=== PATIENT | female | born 1985 | race Caucasian/White ===

== ENCOUNTER 2018-05-07 23:01 | Inpatient (IN) | payer OTHER ==
[2018-05-08 00:31] LABS: Appearance,Urine Clear (Clear); Bilirubin,Urine 1+ (Negative); Blood,Urine Negative (Negative); Color,Urine Dark Yellow; Glucose,Urine (UA) Negative (Negative); Ketones,Urine 3+ (Negative); Leukocyte Esterase,Urine Negative (Negative); Mucus,Urine Moderate /hpf; Nitrite,Urine Negative (Negative); PH, Urine 8.5 (5.0-8.0); Protein,Urine 3+ (Negative); RBC,Urine 4 /hpf (0-5); Specific Gravity,Urine 1.029 (1.001-1.035); Squamous Epithelial Cell,Urine 2 /hpf (0-4); Urobilinogen,Urine >12.0 mg/dL (<2.0); WBC,Urine 2 /hpf (0-5)
[2018-05-08 00:32] LABS: HCT 40.2 % (34.0-46.0); MCH 28.9 pg (25.0-35.0); MCHC 34.7 g/dL (31.0-37.0); MCV 83.3 fL (80.0-100.0); Mean Platelet Volume 7.4; Platelet Count 193 k/uL (150-450); RBC 4.83 m/uL (3.80-5.40); RDW 13.2 % (11.5-15.5); WBC 7.6 k/uL (3.8-10.6)
[2018-05-08 00:40] LABS: ALT 158 U/L (9-52); AST 255 U/L (14-36); Albumin 4.7 g/dL (3.5-5.0); Alkaline Phosphatase 199 U/L (38-126); Amylase 45 U/L (30-110); Anion Gap 12 mmol/L; Blood Urea Nitrogen 22 mg/dL (7-17); Calcium 9.8 mg/dL (8.4-10.2); Carbon Dioxide 26 mmol/L (22-30); Chloride 104 mmol/L (98-107); Glucose 116 mg/dL (74-99); Lipase 113 U/L (23-300); Potassium 3.7 mmol/L (3.5-5.1); Sodium 142 mmol/L (137-145); Total Protein 7.9 g/dL (6.3-8.2)
[2018-05-08 01:05] LABS: Lymphocytes # (M) 1.14 k/uL (1.0-4.8); Monocytes # (M) 0.38 k/uL (0-1.0); Neutrophils # (M) 6.08 k/uL (1.3-7.7); Neutrophils % (M) 80 %; Nucleated Red Blood Cells 0 /100 WBC (0-0); Total Cells Counted 100
--- NOTE | 2018-05-08 01:07 | US ---
EXAMINATION TYPE: US abdomen limited DATE OF EXAM: 05/08/2018 COMPARISON: NONE CLINICAL HISTORY: Pain, attention RUQ. RUQ pain. Some limitations due to rib shadowing. EXAM MEASUREMENTS: Liver Length: 15.4 cm Gallbladder Wall: 0.4 cm CBD: 0.6 cm Right Kidney: 9.0 x 3.8 x 3.5 cm Pancreas: wnl Liver: wnl Gallbladder: Gallstones seen in the neck area. Evidence for sonographic Mederos's sign: Yes CBD: wnl Right Kidney: wnl IMPRESSION: Multiple small gallstones near the gallbladder neck. No dilated ducts. There was tenderne ss over the gallbladder during the exam. Gallbladder is slightly enlarged and measures 4 cm in diamet er. There is probably acute cholecystitis.
[2018-05-08] MEDS ORDERED: KETOROLAC 30 MG/ML 1 ML VIAL IVP STA (01:12)
[2018-05-08] MEDS ORDERED: SODIUM CHLORIDE 0.9% 1,000 ML IV ONE (01:42)
[2018-05-08] MEDS ORDERED: SODIUM CHLORIDE 0.9% 1,000 ML IV STA (01:42)
[2018-05-08] MEDS ORDERED: ACETAMINOPHEN TAB 325 MG TAB PO PRN (01:43)
[2018-05-08] MEDS ORDERED: NALOXONE 0.4 MG/ML 1 ML VIAL IV PRN (01:43)
[2018-05-08] MEDS ORDERED: MORPHINE SULFATE 4 MG/ML SYRINGE IV PRN (01:43)
--- NOTE | 2018-05-08 01:46 | ED ---
Abdominal Pain HPI - General Chief Complaint: Abdominal Pain Stated Complaint: Abdominal Pain Time Seen by Provider: 05/07/18 23:14 Source: patient Mode of arrival: ambulatory Limitations: no limitations - History of Present Illness Initial Comments: This patient is a 32-year-old woman who presents to be evaluated for sharp, intermittent, right upper quadrant pain. The patient states that the pains started Friday night around 10 PM, and it continued few hours and then improved but has never really totally gone away. She states that if she takes a deep breath there is pain in the right upper quadrant. The pain does radiate towards the back. She states that it does sometimes seem to get worse with eating. She hasn't noticed any real improving factors. Pains moderate intensity and sharp in character. She has also had some associated nausea and she did have a couple of episodes of vomiting. She did not note any blood or coffee-ground material. MD Complaint: abdominal pain Onset/Timin -: days(s) Location: RUQ Migration to: no migration Severity: moderate Quality: sharp Consistency: intermittent, colicky Improves With: nothing Worsens With: eating Associated Symptoms: nausea - Related Data Home Medications Medication Instructions Recorded Confirmed Norethindrone [Oralia] 0.35 mg PO DAILY 05/07/18 05/07/18 Allergies Allergy/AdvReac Type Severity Reaction Status Date / Time No Known Allergies Allergy Verified 05/08/18 06:51 Review of Systems ROS Statement: Those systems with pertinent positive or pertinent negative responses have been documented in the HPI. ROS Other: All systems not noted in ROS Statement are negative. Constitutional: Denies: fever, chills Respiratory: Denies: cough, dyspnea Cardiovascular: Denies: chest pain, palpitations, edema Gastrointestinal: Reports: abdominal pain, nausea, vomiting. Denies: diarrhea, hematemesis, melena, hematochezia Genitourinary: Denies: dysuria, hematuria Musculoskeletal: Denies: back pain Skin: Denies: rash Neurological: Denies: headache, weakness, numbness Past Medical History Past Medical History: No Reported History History of Any Multi-Drug Resistant Organisms: None Reported Additional Past Surgical History / Comment(s): section 2013. [place] teeth resection. Past Psychological History: No Psychological Hx Reported Smoking Status: Never smoker Past Alcohol Use History: None Reported Past Drug Use History: None Reported - Past Family History Mother Family Medical History: No Reported History Father Family Medical History: Diabetes Mellitus General Exam Limitations: no limitations General appearance: alert, in no apparent distress Head exam: Present: atraumatic, normocephalic Eye exam: Present: normal appearance. Absent: scleral icterus, conjunctival injection ENT exam: Present: normal oropharynx Neck exam: Present: normal inspection, full ROM Respiratory exam: Present: normal lung sounds bilaterally. Absent: respiratory distress, wheezes, rales, rhonchi, stridor Cardiovascular Exam: Present: regular rate, normal rhythm, normal heart sounds GI/Abdominal exam: Present: soft, tenderness (Right upper quadrant), normal bowel sounds. Absent: distended, guarding, rebound, rigid, mass, bruit, hernia Extremities exam: Present: normal inspection, normal capillary refill. Absent: pedal edema, calf tenderness Back exam: Present: normal inspection. Absent: CVA tenderness (R), CVA tenderness (L) Neurological exam: Present: alert Skin exam: Present: warm, dry, intact, normal color. Absent: rash Course Vital Signs 05/07/18 05/08/18 05/08/18 23:13 01:14 02:15 Temperature 98.2 F 97.7 F Pulse Rate 66 78 Respiratory 18 18 Rate Blood Pressure 113/62 126/86 106/61 O2 Sat by Pulse 99 99 Oximetry Medical Decision Making - Medical Decision Making Patient is 32-year-old woman approximately 4-5 months with symptoms very consistent with biliary colic. The ultrasound appears to show findings suggestive of acute cholecystitis. Case is discussed with Dr. Chen, will admit patient and see in the morning. Patient maintained nothing by mouth. - Lab Data Result diagrams: 05/08/18 00:10 05/08/18 00:10 Lab Results 05/08/18 05/08/18 05/08/18 Range/Units 00:10 00:10 00:15 WBC 7.6 (3.8-10.6) k/uL RBC 4.83 (3.80-5.40) m/uL Hgb 14.0 (11.4-16.0) gm/dL Hct 40.2 (34.0-46.0) % MCV 83.3 (80.0-100.0) fL MCH 28.9 (25.0-35.0) pg MCHC 34.7 (31.0-37.0) g/dL RDW 13.2 (11.5-15.5) % Plt Count 193 (150-450) k/uL Neutrophils % (Manual) 80 % Lymphocytes % (Manual) 15 % Monocytes % (Manual) 5 % Neutrophils # (Manual) 6.08 (1.3-7.7) k/uL Lymphocytes # (Manual) 1.14 (1.0-4.8) k/uL Monocytes # (Manual) 0.38 (0-1.0) k/uL Nucleated RBCs 0 (0-0) /100 WBC Manual Slide Review Performed Sodium 142 (137-145) mmol/L Potassium 3.7 (3.5-5.1) mmol/L Chloride 104 (98-107) mmol/L Carbon Dioxide 26 (22-30) mmol/L Anion Gap 12 mmol/L BUN 22 H (7-17) mg/dL Creatinine 0.74 (0.52-1.04) mg/dL Est GFR (CKD-EPI)AfAm >90 (>60 ml/min/1.73 sqM) Est GFR (CKD-EPI)NonAf >90 (>60 ml/min/1.73 sqM) Glucose 116 H (74-99) mg/dL Calcium 9.8 (8.4-10.2) mg/dL Total Bilirubin 2.0 H (0.2-1.3) mg/dL AST 255 H (14-36) U/L ALT 158 H (9-52) U/L Alkaline Phosphatase 199 H (38-126) U/L Total Protein 7.9 (6.3-8.2) g/dL Albumin 4.7 (3.5-5.0) g/dL Amylase 45 (30-110) U/L Lipase 113 (23-300) U/L Urine Color Urine Appearance (Clear) Urine pH (5.0-8.0) Ur Specific [place] (1.001-1.035) Urine Protein (Negative) Urine Glucose (UA) (Negative) Urine Ketones (Negative) Urine Blood (Negative) Urine Nitrite (Negative) Urine Bilirubin (Negative) Urine Urobilinogen (<2.0) mg/dL Ur Leukocyte Esterase (Negative) Urine RBC (0-5) /hpf Urine WBC (0-5) /hpf Ur Squamous Epith Cells (0-4) /hpf Urine Mucus (None) /hpf Urine HCG, Qual Not Detected (Not Detectd) 05/08/18 Range/Units 00:15 WBC (3.8-10.6) k/uL RBC (3.80-5.40) m/uL Hgb (11.4-16.0) gm/dL Hct (34.0-46.0) % MCV (80.0-100.0) fL MCH (25.0-35.0) pg MCHC (31.0-37.0) g/dL RDW (11.5-15.5) % Plt Count (150-450) k/uL Neutrophils % (Manual) % Lymphocytes % (Manual) % Monocytes % (Manual) % Neutrophils # (Manual) (1.3-7.7) k/uL Lymphocytes # (Manual) (1.0-4.8) k/uL Monocytes # (Manual) (0-1.0) k/uL Nucleated RBCs (0-0) /100 WBC Manual Slide Review Sodium (137-145) mmol/L Potassium (3.5-5.1) mmol/L Chloride (98-107) mmol/L Carbon Dioxide (22-30) mmol/L Anion Gap mmol/L BUN (7-17) mg/dL Creatinine (0.52-1.04) mg/dL Est GFR (CKD-EPI)AfAm (>60 ml/min/1.73 sqM) Est GFR (CKD-EPI)NonAf (>60 ml/min/1.73 sqM) Glucose (74-99) mg/dL Calcium (8.4-10.2) mg/dL Total Bilirubin (0.2-1.3) mg/dL AST (14-36) U/L ALT (9-52) U/L Alkaline Phosphatase (38-126) U/L Total Protein (6.3-8.2) g/dL Albumin (3.5-5.0) g/dL Amylase (30-110) U/L Lipase (23-300) U/L Urine Color Dark Yellow Urine Appearance Clear (Clear) Urine pH 8.5 H (5.0-8.0) Ur Specific [place] 1.029 (1.001-1.035) Urine Protein 3+ H (Negative) Urine Glucose (UA) Negative (Negative) Urine Ketones 3+ H (Negative) Urine Blood Negative (Negative) Urine Nitrite Negative (Negative) Urine Bilirubin 1+ H (Negative) Urine Urobilinogen >12.0 (<2.0) mg/dL Ur Leukocyte Esterase Negative (Negative) Urine RBC 4 (0-5) /hpf Urine WBC 2 (0-5) /hpf Ur Squamous Epith Cells 2 (0-4) /hpf Urine Mucus Moderate H (None) /hpf Urine HCG, Qual (Not Detectd) Disposition Clinical Impression: Abdominal pain, Cholecystitis Disposition: ADMITTED IP TO THIS HOSP Condition: Fair
[2018-05-08] MEDS: KETOROLAC 30 MG/ML 1 ML VIAL IVP SCH ×4 (05:54→23:50)
[2018-05-08] MEDS: ONDANSETRON 4 MG/2 ML VIAL IVP PRN ×2 (05:54→18:18)
[2018-05-08 08:03] LABS: ALT 365 U/L (9-52); AST 548 U/L (14-36); Albumin 3.4 g/dL (3.5-5.0); Alkaline Phosphatase 154 U/L (38-126); Anion Gap 8 mmol/L; Blood Urea Nitrogen 17 mg/dL (7-17); Calcium 8.7 mg/dL (8.4-10.2); Carbon Dioxide 23 mmol/L (22-30); Chloride 113 mmol/L (98-107); Glucose 92 mg/dL (74-99); Potassium 3.9 mmol/L (3.5-5.1); Sodium 144 mmol/L (137-145); Total Protein 6.1 g/dL (6.3-8.2)
--- NOTE | 2018-05-08 09:20 | P.CONS ---
History of Present Illness - Reason for Consult Consult date: 05/08/18 Elevated liver enzymes right upper quadrant abdominal pain Requesting physician: Deejay Garcias - Chief Complaint Right upper quadrant abdominal pain - History of Present Illness 32-year-old female patient Dr. Mariee 4 months ago presents with acute right upper quadrant abdominal pain that originally started on Friday. Patient that should flulike symptoms. Yesterday when driving home from [place] she had intense right upper quadrant abdominal pain extending to the mid epigastrium with sweats nausea. No history of this type of pain. White count 7.6. Hemoglobin 14. Platelet 193. INR 1.1. Total bilirubin 2.0. AST 255. ALT 158. AP 199. Today LFTs relatively unchanged total bilirubin 2.0. AST 540. ALT 365. AP 154. HCG not detected. Ultrasound abdomen multiple small gallstones in the neck area no dilated ducts. CBD 0.6 cm. Gallbladder enlarged measuring 4 cm in diameter. History of known liver disorders hepatitis. No history of alcoholism. No new medications. Review of Systems Constitutional: Denies fever, chills, sweats, weight gain, or loss. HEENT: Negative for migraines, blurred vision or loss, earaches, drainage, tinnitus, oral mucosal lesions, dysphagia, or odynophagia. CARDIAC: Negative for chest pain, arrhythmias, or palpitation. RESPIRATORY: Negative for shortness of breath, hemoptysis, cough, or sputum production. GI: See HPI for pertinent findings. : Negative for hematuria, urgency, frequency, polyuria, or dysuria. GYNc: Denies possibility of . Negative vaginal discharge. MUSCULOSKELETAL: Negative for muscle aches, swelling, arthritis, and arthralgias. NEUROLOGIC: Negative for stroke or TIA. ENDOCRINE: Negative for thyroid problems. SKIN: Negative for rash or itching. PSYCHIATRIC: Negative history for depression and anxiety Past Medical History Past Medical History: No Reported History History of Any Multi-Drug Resistant Organisms: None Reported Additional Past Surgical History / Comment(s): section 2013. [place] teeth resection. Past Anesthesia/Blood Transfusion Reactions: No Reported Reaction Past Psychological History: No Psychological Hx Reported Smoking Status: Never smoker Past Alcohol Use History: None Reported Past Drug Use History: None Reported - Past Family History Mother Family Medical History: No Reported History Father Family Medical History: Diabetes Mellitus Medications and Allergies Home Medications Medication Instructions Recorded Confirmed Type Norethindrone [Oralia] 0.35 mg PO DAILY 05/07/18 05/07/18 History Allergies Allergy/AdvReac Type Severity Reaction Status Date / Time No Known Allergies Allergy Verified 05/08/18 06:51 Physical Exam Vitals: Vital Signs Temp Pulse Pulse Resp BP BP Pulse Ox 05/08/18 07:14 98.1 F 60 16 106/72 96 05/08/18 02:42 98.0 F 67 16 111/67 97 05/08/18 02:15 97.7 F 78 18 106/61 99 05/08/18 01:14 126/86 05/07/18 23:13 98.2 F 66 18 113/62 99 Intake and Output 05/07/18 05/08/18 05/08/18 22:59 06:59 14:59 Intake Total 600 Balance 600 Intake: Intake, IV Titration 600 Amount Sodium Chloride 0.9% 1, 600 000 ml @ 100 mls/hr IV . Q10H STA Rx#:[id number] Other: # Voids 1 Weight 63.503 kg General appearance: The patient is alert, oriented, in no acute distress. HET: Head is normocephalic and atraumatic. Pupils are equal and reactive. Oropharynx is clear without lesions. Neck: Supple without lymphadenopathy. Trachea midline. Heart: S1 S2. Regular rate and rhythm. Lungs: No crackles or wheezes are heard. Abdomen: Soft, right upper quadrant tenderness, nondistended with bowel sounds. No peritoneal signs. No palpable organomegaly or masses. Extremities: Normal skin color and turgor. No cyanosis, rash, ulceration, clubbing, or edema. Radial and pedal pulses are 2/4 bilaterally. Neurological: No focal deficits. Strength and sensation are grossly intact. Results CBC & Chem 7: 05/08/18 00:10 05/08/18 06:54 Labs: Abnormal Lab Results - Last 24 Hours (Table) 05/08/18 05/08/18 05/08/18 Range/Units 00:10 00:15 06:54 Chloride 113 H (98-107) mmol/L BUN 22 H (7-17) mg/dL Glucose 116 H (74-99) mg/dL Total Bilirubin 2.0 H 2.0 H (0.2-1.3) mg/dL AST 255 H 548 H (14-36) U/L ALT 158 H 365 H (9-52) U/L Alkaline Phosphatase 199 H 154 H (38-126) U/L Total Protein 6.1 L (6.3-8.2) g/dL Albumin 3.4 L (3.5-5.0) g/dL Urine pH 8.5 H (5.0-8.0) Urine Protein 3+ H (Negative) Urine Ketones 3+ H (Negative) Urine Bilirubin 1+ H (Negative) Urine Mucus Moderate H (None) /hpf US - abdomen: report reviewed (Dr. Carlson) Assessment and Plan (1) Right upper quadrant pain Narrative/Plan: 32-year-old female 4 months presents with acute right upper quadrant abdominal pain elevated liver enzymes and cholelithiasis possible choledocholithiasis. Ultrasound imaging reported dilated gallbladder, no dilated ducts CBD 0.6 cm. Current Visit: Yes Status: Acute Code(s): R10.11 - RIGHT UPPER QUADRANT PAIN SNOMED Code(s): 586248543 (2) Cholelithiasis Current Visit: Yes Status: Acute Code(s): K80.20 - CALCULUS OF GALLBLADDER W /O CHOLECYSTITIS W/O OBSTRUCTION SNOMED Code(s): 603588670 (3) Elevated liver enzymes Current Visit: Yes Status: Acute Code(s): R74.8 - ABNORMAL LEVELS OF OTHER SERUM ENZYMES SNOMED Code(s): 343314846 (4) S/P section Current Visit: No Status: Resolved Code(s): Z98.89 - OTHER SPECIFIED POSTPROCEDURAL STATES * DO NOT USE * SNOMED Code(s): 175052819 Plan: 1. Hepatitis screen. PT/INR. MRCP. Based on MRI results we'll decide if ERCP is indicated. Continue with nothing by mouth status. GI prophylaxis. The nurse healthcare manager has discussed the risks, benefits and alternative therapies for the above-mentioned procedure and for both sedation/analgesia as well as necessary blood product administration, if indicated, as they pertain to this patient. The patient has indicated understanding and acceptance of the risks and procedures discussed. Thank you for this kind referral and the opportunity to participate in the care of your patient. This consultation was discussed with Dr. Carlson. The impression and plan of care have been directed as dictated.
--- NOTE | 2018-05-08 09:47 | P.GSHP ---
<Rita Jacob - Last Filed: 05/08/18 12:04> History of Present Illness H&P Date: 05/08/18 32-year-old female was admitted to the emergency room with a chief complaint of developing intermittent right upper quadrant abdominal pain associated with nausea. Patient states the pain originally started on Friday night she thought she had the flu. stated acute pain in the right upper quadrant last for couple hours and then seemed to go away. stated she took a deep breath there was increased pain in the right upper quadrant. P stated the pain radiated to the back seemed to get worse with eating. Patient stated the day before coming into the emergency room was driving developed such intense pain in the right upper quadrant felt nauseated sharp stabbing and twisting pain could not drive needed to pull the car off the road have family member come and pick patient up. Patient stated had not experience this type of pain in the past. Patient's is 4 months . Does have a positive family history of gallbladder disease Positive tenderness to the right upper quadrant Ultrasound of the gallbladder showed gallstones in the neck area no dilated duct Liver enzymes elevated AST 548 ALT 365 alkaline phosphatase 154 total bili 2 - Review of Systems Comment: Essentially unremarkable except as mentioned in the present illness Past Medical History Past Medical History: No Reported History History of Any Multi-Drug Resistant Organisms: None Reported Additional Past Surgical History / Comment(s): section 2013. [place] teeth resection. Past Anesthesia/Blood Transfusion Reactions: No Reported Reaction Past Psychological History: No Psychological Hx Reported Smoking Status: Never smoker Past Alcohol Use History: None Reported Past Drug Use History: None Reported - Past Family History Mother Family Medical History: No Reported History Father Family Medical History: Diabetes Mellitus Medications and Allergies Home Medications Medication Instructions Recorded Confirmed Type Norethindrone [Oralia] 0.35 mg PO DAILY 05/07/18 05/07/18 History Allergies Allergy/AdvReac Type Severity Reaction Status Date / Time No Known Allergies Allergy Verified 05/08/18 06:51 Surgical - Exam Vital Signs Temp Pulse Resp BP Pulse Ox 98.2 F 66 18 113/62 99 05/07/18 23:13 05/07/18 23:13 05/07/18 23:13 05/07/18 23:13 05/07/18 23:13 GENERAL APPEARANCE: 32 -year-old female patient is alert, oriented, in no acute distress. States just received pain medication for right upper quadrant pain VITAL SIGNS: Reviewed HEENT: Pupils are equal and reactive. The nares are patent. Oropharynx is clear without lesions. NECK: Supple without lymphadenopathy. Traches midline. HEART: S1, S2. Regular rate and rhythm. No murmur denying chest pain LUNGS: No crackles or wheezes are heard. No shortness of breath ABDOMEN: Soft,, positive tenderness to the right upper quadrant radiating to the back nondistended with good bowel sounds. No peritoneal signs. No palpable organomegaly or masses. EXTREMITIES: Normal skin color and turgor. No cyanosis, rash, ulceration, clubbing or edema. Radial pedal pulses are 2/4 bilaterally. NEUROLOGICAL: No focal deficits. Strength and sensation are grossly intact. Results - Labs 05/08/18 00:10 05/08/18 06:54 Abnormal Lab Results - Last 24 Hours (Table) 05/08/18 05/08/18 05/08/18 Range/Units 00:10 00:15 06:54 Chloride 113 H (98-107) mmol/L BUN 22 H (7-17) mg/dL Glucose 116 H (74-99) mg/dL Total Bilirubin 2.0 H 2.0 H (0.2-1.3) mg/dL AST 255 H 548 H (14-36) U/L ALT 158 H 365 H (9-52) U/L Alkaline Phosphatase 199 H 154 H (38-126) U/L Total Protein 6.1 L (6.3-8.2) g/dL Albumin 3.4 L (3.5-5.0) g/dL Urine pH 8.5 H (5.0-8.0) Urine Protein 3+ H (Negative) Urine Ketones 3+ H (Negative) Urine Bilirubin 1+ H (Negative) Urine Mucus Moderate H (None) /hpf Diabetes panel 05/08/18 05/08/18 Range/Units 00:10 06:54 Sodium 142 144 (137-145) mmol/L Potassium 3.7 3.9 (3.5-5.1) mmol/L Chloride 104 113 H (98-107) mmol/L Carbon Dioxide 26 23 (22-30) mmol/L BUN 22 H 17 (7-17) mg/dL Creatinine 0.74 0.74 (0.52-1.04) mg/dL Glucose 116 H 92 (74-99) mg/dL Calcium 9.8 8.7 (8.4-10.2) mg/dL AST 255 H 548 H (14-36) U/L ALT 158 H 365 H (9-52) U/L Alkaline Phosphatase 199 H 154 H (38-126) U/L Total Protein 7.9 6.1 L (6.3-8.2) g/dL Albumin 4.7 3.4 L (3.5-5.0) g/dL Calcium panel 05/08/18 05/08/18 Range/Units 00:10 06:54 Calcium 9.8 8.7 (8.4-10.2) mg/dL Albumin 4.7 3.4 L (3.5-5.0) g/dL Pituitary panel 05/08/18 05/08/18 Range/Units 00:10 06:54 Sodium 142 144 (137-145) mmol/L Potassium 3.7 3.9 (3.5-5.1) mmol/L Chloride 104 113 H (98-107) mmol/L Carbon Dioxide 26 23 (22-30) mmol/L BUN 22 H 17 (7-17) mg/dL Creatinine 0.74 0.74 (0.52-1.04) mg/dL Glucose 116 H 92 (74-99) mg/dL Calcium 9.8 8.7 (8.4-10.2) mg/dL Adrenal panel 05/08/18 05/08/18 Range/Units 00:10 06:54 Sodium 142 144 (137-145) mmol/L Potassium 3.7 3.9 (3.5-5.1) mmol/L Chloride 104 113 H (98-107) mmol/L Carbon Dioxide 26 23 (22-30) mmol/L BUN 22 H 17 (7-17) mg/dL Creatinine 0.74 0.74 (0.52-1.04) mg/dL Glucose 116 H 92 (74-99) mg/dL Calcium 9.8 8.7 (8.4-10.2) mg/dL Total Bilirubin 2.0 H 2.0 H (0.2-1.3) mg/dL AST 255 H 548 H (14-36) U/L ALT 158 H 365 H (9-52) U/L Alkaline Phosphatase 199 H 154 H (38-126) U/L Total Protein 7.9 6.1 L (6.3-8.2) g/dL Albumin 4.7 3.4 L (3.5-5.0) g/dL Assessment and Plan Assessment: Impression Present on admission acute onset right upper quadrant abdominal pain suspect due to acute cholecystitis Ultrasound of the right upper quadrant report indicates gallstones seen in the neck area Present on admission elevated liver enzymes Positive family history of gallbladder disease 4 months Plan Pain control IV fluid hydration GI service recommendations noted MR MRCP await the results decision will made an ERCP as indicated workup Repeat labs in the morning Keep nothing by mouth for now Lap cholecystectomy to be scheduled defer to surgeon to the timing to be determined after GI workup DVT and GI prophylaxis Follow-up on pending labs The above impression and plan of care have been discussed and directed by signing physician. Rita Jacob nurse practitioner acting as scribe for signing physician. <Deejay Garcias - Last Filed: 05/08/18 13:38> Surgical - Exam Vital Signs Temp Pulse Resp BP Pulse Ox 98.2 F 66 18 113/62 99 05/07/18 23:13 05/07/18 23:13 05/07/18 23:13 05/07/18 23:13 05/07/18 23:13 Results - Labs 05/08/18 00:10 05/08/18 06:54 Abnormal Lab Results - Last 24 Hours (Table) 05/08/18 05/08/18 05/08/18 Range/Units 00:10 00:15 06:54 Chloride 113 H (98-107) mmol/L BUN 22 H (7-17) mg/dL Glucose 116 H (74-99) mg/dL Total Bilirubin 2.0 H 2.0 H (0.2-1.3) mg/dL AST 255 H 548 H (14-36) U/L ALT 158 H 365 H (9-52) U/L Alkaline Phosphatase 199 H 154 H (38-126) U/L Total Protein 6.1 L (6.3-8.2) g/dL Albumin 3.4 L (3.5-5.0) g/dL Urine pH 8.5 H (5.0-8.0) Urine Protein 3+ H (Negative) Urine Ketones 3+ H (Negative) Urine Bilirubin 1+ H (Negative) Urine Mucus Moderate H (None) /hpf Diabetes panel 05/08/18 05/08/18 Range/Units 00:10 06:54 Sodium 142 144 (137-145) mmol/L Potassium 3.7 3.9 (3.5-5.1) mmol/L Chloride 104 113 H (98-107) mmol/L Carbon Dioxide 26 23 (22-30) mmol/L BUN 22 H 17 (7-17) mg/dL Creatinine 0.74 0.74 (0.52-1.04) mg/dL Glucose 116 H 92 (74-99) mg/dL Calcium 9.8 8.7 (8.4-10.2) mg/dL AST 255 H 548 H (14-36) U/L ALT 158 H 365 H (9-52) U/L Alkaline Phosphatase 199 H 154 H (38-126) U/L Total Protein 7.9 6.1 L (6.3-8.2) g/dL Albumin 4.7 3.4 L (3.5-5.0) g/dL Calcium panel 05/08/18 05/08/18 Range/Units 00:10 06:54 Calcium 9.8 8.7 (8.4-10.2) mg/dL Albumin 4.7 3.4 L (3.5-5.0) g/dL Pituitary panel 05/08/18 05/08/18 Range/Units 00:10 06:54 Sodium 142 144 (137-145) mmol/L Potassium 3.7 3.9 (3.5-5.1) mmol/L Chloride 104 113 H (98-107) mmol/L Carbon Dioxide 26 23 (22-30) mmol/L BUN 22 H 17 (7-17) mg/dL Creatinine 0.74 0.74 (0.52-1.04) mg/dL Glucose 116 H 92 (74-99) mg/dL Calcium 9.8 8.7 (8.4-10.2) mg/dL Adrenal panel 05/08/18 05/08/18 Range/Units 00:10 06:54 Sodium 142 144 (137-145) mmol/L Potassium 3.7 3.9 (3.5-5.1) mmol/L Chloride 104 113 H (98-107) mmol/L Carbon Dioxide 26 23 (22-30) mmol/L BUN 22 H 17 (7-17) mg/dL Creatinine 0.74 0.74 (0.52-1.04) mg/dL Glucose 116 H 92 (74-99) mg/dL Calcium 9.8 8.7 (8.4-10.2) mg/dL Total Bilirubin 2.0 H 2.0 H (0.2-1.3) mg/dL AST 255 H 548 H (14-36) U/L ALT 158 H 365 H (9-52) U/L Alkaline Phosphatase 199 H 154 H (38-126) U/L Total Protein 7.9 6.1 L (6.3-8.2) g/dL Albumin 4.7 3.4 L (3.5-5.0) g/dL Assessment and Plan Plan: Await GI input. Patient's liver enzymes have gone up today. She currently is pain-free. MRCP is scheduled for this afternoon. If stone is present she will need a ERCP.
[2018-05-08] MEDS: FAMOTIDINE 20 MG/2 ML VIAL IV SCH ×2 (09:48→21:37)
[2018-05-08 09:55] LABS: INR 1.1 (<1.2); Prothrombin Time 10.3 sec (9.0-12.0)
--- NOTE | 2018-05-08 15:35 | MR ---
EXAMINATION TYPE: MR MRCP DATE OF EXAM: 05/08/2018 COMPARISON: Limited abdominal ultrasound earlier today. HISTORY: RUQ pain, elevated LFTS Standard multiplanar, multisequence MRI departmental protocol Multiplanar, multisequence images of the abdomen focusing on biliary system were acquired. And thick slice MRCP imaging is performed. FINDINGS: Exam noted suboptimal as there is rest type motion artifact degradation. LIVER/GB/PANCREAS/BILIARY SYSTEM: Liver is overall normal in size. No significant dropout is seen to suggest fatty infiltration. No suspicious solid or cystic intrahepatic mass is identified. Gallbladde r has distended margins with single 3 mm round focus axial image 19 likely corresponding to small gal lstone on ultrasound. Gallbladder is mildly dilated. There is adjacent wall edema or pericholecystic fluid noted. There is no suspicious intrahepatic or extra hepatic biliary dilatation. Pancreas is nor mal in size without worrisome mass. No ductal dilatation is present. Pancreatic duct is less well-see n due to nondilatation, underlying divisum is felt present as duct appears to terminate superior to t he ampulla. This could be confirmed with ERCP if desired. OTHER: Lung bases are grossly clear. Spleen and both adrenal glands are normal in size. There is no c oncerning renal mass or hydronephrosis. There is no suspicious bowel dilatation. There is no concerni ng abdominal fluid collection. Visualized osseous structures are intact. IMPRESSION: 1. Mildly dilated gallbladder with distended margins, single small intraluminal gallstone redemonstra carol. Mild surrounding perihepatic fluid or ascites is noted not clearly seen on ultrasound. Acute cho lecystitis cannot be excluded. Consider HIDA scan follow-up. 2. No suspicious biliary or pancreatic ductal dilatation. Possible underlying divisum, this could be further assessed with ERCP if desired.
[2018-05-08 17:22] LABS: Hepatitis A Antibody IgM Non-Reactive (Non-Reactive); Hepatitis B Core IgM Non-Reactive (Non-Reactive)
[2018-05-08] MEDS ORDERED: ONDANSETRON 4 MG/2 ML VIAL IVP PRN (21:19)
[2018-05-08] MEDS: METOCLOPRAMIDE 5 MG/ML 2 ML VIAL IVP PRN (21:31)
[2018-05-09] MEDS ORDERED: METOCLOPRAMIDE 5 MG/ML 2 ML VIAL IVP SCH
[2018-05-09] MEDS ORDERED: SODIUM CHLORIDE 0.9% 1,000 ML IV ONE (01:05)
[2018-05-09] MEDS: KETOROLAC 30 MG/ML 1 ML VIAL IVP SCH ×4 (06:36→23:53)
[2018-05-09 07:29] LABS: ALT 437 U/L (9-52); AST 291 U/L (14-36); Albumin 3.2 g/dL (3.5-5.0); Alkaline Phosphatase 221 U/L (38-126); Anion Gap 11 mmol/L; Blood Urea Nitrogen 20 mg/dL (7-17); Calcium 8.9 mg/dL (8.4-10.2); Carbon Dioxide 17 mmol/L (22-30); Chloride 117 mmol/L (98-107); Potassium 4.3 mmol/L (3.5-5.1); Sodium 145 mmol/L (137-145); Total Bilirubin 3.3 mg/dL (0.2-1.3)
[2018-05-09] MEDS: METOCLOPRAMIDE 5 MG/ML 2 ML VIAL IVP PRN ×2 (07:33→17:27)
[2018-05-09 07:52] LABS: Glucose 48 mg/dL (74-99)
[2018-05-09 08:30] LABS: Glucose,Whole Blood 76 mg/dL (75-99)
--- NOTE | 2018-05-09 09:19 | P.PN ---
Progress Note - Text Progress Note Date: 05/09/18 's of epigastric pain. She states the Toradol helps. Her liver enzymes are still elevated. Her alk phos and bilirubin have both risen. On exam her vital signs show. Her abdomen soft. I discussed the case with Dr. Borrego. I recommended she undergo ERCP prior to laparoscopic cholecystectomy. Apparently this will be scheduled for tomorrow. After ERCP is done we will schedule her for laparoscopic cholecystectomy.
[2018-05-09] MEDS: FAMOTIDINE 20 MG/2 ML VIAL IV SCH ×2 (11:47→22:31)
[2018-05-10] MEDS ORDERED: LEVOFLOXACIN 500MG-D5W PMX 500 MG in DEXTROSE/WATER 1 100ML.BAG IVPB ONE (06:00)
[2018-05-10] MEDS ORDERED: INDOMETHACIN 50MG SUPPOSITORY RECTAL ONE (06:00)
[2018-05-10] MEDS: KETOROLAC 30 MG/ML 1 ML VIAL IVP SCH ×4 (06:04→23:59)
[2018-05-10] MEDS ORDERED: IV FLUID CONTINUATION 1,000 ML IV ONE (09:45)
[2018-05-10] MEDS: FAMOTIDINE 20 MG/2 ML VIAL IV SCH ×2 (10:10→20:01)
[2018-05-10] MEDS ORDERED: IOPAMIDOL-300 50ML BTL MISCELLANE ONE (10:42)
[2018-05-10] MEDS ORDERED: LACTATED RINGERS 1,000 ML IV ONE (11:00)
--- NOTE | 2018-05-10 11:24 | P.PCN ---
Date of Procedure: 05/10/18 Procedure(s) Performed: Procedure: Endoscopic retrograde cholangiopancreatography with sphincterotomy and extraction of common bile duct stone using the 8.5 mm balloon catheter. Preoperative diagnosis: Cholelithiasis and suspected choledocholithiasis. Postoperative diagnosis: 1. Filling defect in the common bile duct consistent with common bile duct stone. 2. Successful sphincterotomy and extraction of the stone using the 8.5 mm balloon catheter. Preparation and sedation: Were provided by anesthesia. Brief clinical history: The patient is a 32-year-old female, 4 months , who presented with acute abdominal pain and was found to have elevated liver enzymes and cholelithiasis. No common bile duct stone was suggested on MRI but her bilirubin continued to be on the elevated side and her liver enzymes did not normalize. The details are summarized in the history and physical and dictated progress notes. This evaluation is to assess for possible common bile duct stone prior to cholecystectomy. Procedure: With the patient in the prone position and after informed consent and adequate sedation, I passed the Olympus video duodenoscope down the esophagus into the stomach then passed it through the pylorus into the duodenum and then brought the papilla into view. The papilla appeared normal and there was a duodenal diverticulum in its vicinity. Initial cannulation and injection of dye resulted in opacification of the pancreatic duct which appeared normal but did not fill beyond the head of the pancreas raising the possibility of pancreas divisum which was suggested on her MRI as well. Subsequently, I was able to cannulate the common bile duct selectively using the sphincterotome. Dye was injected and a filling defect consistent with common bile duct stone was seen. I proceeded to perform adequate sphincterotomy. A common bile duct stone was successfully removed using the 8.5 mm balloon catheter. The patient did not have any immediate complications. Plan: The patient was reassured. Will allow clear liquid diet. Surgical intervention as per Dr Garcias.
--- NOTE | 2018-05-10 11:26 | FL ---
FLUOROSCOPY 2 minutes and 18 seconds of fluoroscopy time were utilized during ERCP. 2 images document the procedu re.
--- NOTE | 2018-05-10 11:34 | P.PN ---
Progress Note - Text Progress Note Date: 05/10/18 The patient underwent ERCP today. A stone was removed, bile duct. Patient wished to have laparoscopic cholecystectomy tomorrow. On exam her vital signs are still. Her abdomen soft. Status post removal of choledocholithiasis. Patient was scheduled for laparoscopic ostectomy in the a.m.
[2018-05-10] MEDS: METOCLOPRAMIDE 5 MG/ML 2 ML VIAL IVP PRN (12:30)
[2018-05-10 14:41] VITALS: RESP 16
[2018-05-11] MEDS: KETOROLAC 30 MG/ML 1 ML VIAL IVP SCH ×3 (06:25→17:35)
[2018-05-11] MEDS: FAMOTIDINE 20 MG/2 ML VIAL IV SCH (08:34)
[2018-05-11] MEDS ORDERED: IV FLUID CONTINUATION 500 ML IV ONE (08:53)
[2018-05-11] MEDS: ONDANSETRON 4 MG/2 ML VIAL IVP ONE ×2 (09:10→12:24)
[2018-05-11] MEDS ORDERED: DEXAMETHASONE SOD PHOSPHATE 10 MG/ML 1 ML VIAL IV ONE (09:10)
[2018-05-11] MEDS ORDERED: BUPIVACAIN-EPI 0.25%-1:200,000 30 ML VIAL SQ ONE (10:45)
[2018-05-11] MEDS ORDERED: SODIUM CHLORIDE 0.9% 50 ML with ceFAZolin 1,000 MG IV ONE ×2 (11:06)
[2018-05-11] MEDS ORDERED: LACTATED RINGERS 1,000 ML IV ONE (11:23)
--- NOTE | 2018-05-11 11:28 | P.OP ---
Date of Procedure: 05/11/18 Preoperative Diagnosis: Cholelithiasis Postoperative Diagnosis: Cholelithiasis Procedure(s) Performed: Laparoscopic cholecystectomy Anesthesia: JOAQUIN Surgeon: Deejay Garcias Estimated Blood Loss (ml): 5 Pathology: other (Gallbladder) Condition: stable Disposition: PACU Description of Procedure: The patient was placed on the operating table. The patient received a general endotracheal tube anesthesia. The patients abdomen was prepped and draped in the usual sterile fashion. Through an infraumbilical stab incision, the fascia of the anterior abdominal wall was grasped with a pair of Kochers and then the Veress needle was placed in the peritoneal cavity. Position of the Veress needle was confirmed with positive drop test. The abdomen was then insufflated. After adequate insufflation, the 10 mm trocar was placed in the peritoneal cavity. Following this the laparoscope was placed in the peritoneal cavity. The patient was placed in the head-up, right side up position and then a 5 mm trocar was placed in the right lateral and right subcostal position under direct visualization. A 8 mm trocar was placed in the epigastric position. The gallbladder was grasped in the fundus and infundibulum. Traction on the gallbladder was placed in the lateral and the cephalad positions. The triangle of Calot was visualized.. The cystic duct was bluntly dissected until the union of the cystic duct and common bile duct was seen. The cystic duct was then divided and sealed with the Harmonic scissors. A PDS Endoloop was then placed throughout the cystic duct stump. The cystic artery divided and sealed with the Harmonic scissors. The gallbladder was then removed from the liver bed using Harmonic scissors. The gallbladder was then extracted through the epigastric port site. Operative field was checked for any bleeding spots and Harmonic scissors was used to coagulate the liver bed. The abdomen was irrigated. The trocars were removed. The skin was closed using interrupted 3-0 Vicryl suture. Dermabond dressing were applied. The patient tolerated the procedure well.
[2018-05-11] MEDS ORDERED: diphenhydrAMINE 50 MG/ML 1 ML VIAL IVP ONE (12:30)
[2018-05-11 16:11] LABS: ALT 260 U/L (9-52); AST 57 U/L (14-36); Albumin 3.7 g/dL (3.5-5.0); Alkaline Phosphatase 235 U/L (38-126); Anion Gap 14 mmol/L; Blood Urea Nitrogen 6 mg/dL (7-17); Carbon Dioxide 21 mmol/L (22-30); Chloride 106 mmol/L (98-107); Glucose 74 mg/dL (74-99); Potassium 4.2 mmol/L (3.5-5.1); Sodium 141 mmol/L (137-145); Total Protein 6.5 g/dL (6.3-8.2)
[2018-05-11 17:12] VITALS: BP 126/80; PULSE 72; TEMP 98
--- NOTE | 2018-05-11 18:01 | P.DS ---
Providers Date of admission: 05/08/18 01:49 Expected date of discharge: 05/11/18 Attending physician: Deejay Garcias Primary care physician: Dima Mariee [facility] Course: This is a 32-year-old female who was admitted to the hospital due to choledocholithiasis. Patient underwent ERCP and subsequent laparoscopic cholecystectomy. Please hospital chart for details. Procedures: ERCP Laparoscopic cholecystectomy Patient Condition at Discharge: Fair Plan - Discharge Summary Discharge Rx Participant: Yes New Discharge Prescriptions: New Docusate [Colace] 100 mg PO BID #20 capsule HYDROcodone/APAP 7.5-325MG [[place] 7.5-325] 1 tab PO Q4H PRN 3 Days #18 tab PRN Reason: Pain No Action Norethindrone [Oralia] 0.35 mg PO DAILY Discharge Medication List Norethindrone [Oralia] 0.35 mg PO DAILY 05/07/18 [History] Docusate [Colace] 100 mg PO BID #20 capsule 05/11/18 [Rx] HYDROcodone/APAP 7.5-325MG [[place] 7.5-325] 1 tab PO Q4H PRN 3 Days #18 tab 05/11 [Rx] Follow up Appointment(s)/Referral(s): Dima Mariee DO [Primary Care Provider] - 1-2 days Deejay Garcias MD [STAFF PHYSICIAN] - 1 Week Patient Instructions/Handouts: Abdominal Pain (ED) Discharge Disposition: HOME SELF-CARE
== END 2018-05-11 19:45 | disposition home or self-care (01) | DRG 419 ==
LOC: EC 23:01 → 3SUR 05-08 01:49 → 4SSUR 05-10 07:11
PROVIDERS: ADMIT Surgery; ATTEND Surgery
PROC: 0FC98ZZ Extirpation of Matter from Common Bile Duct, Via Natural or Artificial Opening Endoscopic (ICD-10-PCS; 2018-05-10 09:30)
PROC: 0FT44ZZ Resection of Gallbladder, Percutaneous Endoscopic Approach (ICD-10-PCS; principal; 2018-05-11 08:15)
DX: K80.62 Calculus of gallbladder and bile duct with acute cholecystitis without obstruction (principal); K57.10 Diverticulosis of small intestine without perforation or abscess without bleeding; R74.8 Abnormal levels of other serum enzymes; Z83.3 Family history of diabetes mellitus
CPT/HCPCS: 36415; 43262; 43264; 43277; 74181; 74328; 76705; 80053; 80074; 81001; 81025; 82150; 83690; 85025; 85610; 96361; 96374; 99285

== ENCOUNTER → 2018-05-18 | Outpatient (CLI) | payer OTHER ==
[2018-05-18 10:55] LABS: Albumin 4.6 g/dL (3.5-5.0); Bilirubin, Delta 0.4 mg/dL (0.0-0.2); Bilirubin,Unconjugated 0.4 mg/dL (0.0-1.1); Total Bilirubin 0.8 mg/dL (0.2-1.3); Total Protein 7.8 g/dL (6.3-8.2)
== END | disposition home or self-care (01) ==
LOC: LABWHC1 09:57
PROVIDERS: ATTEND Family Medicine
DX: R74.8 Abnormal levels of other serum enzymes (principal)
CPT/HCPCS: 36415; 80076